=== PATIENT | female | born 1975 ===

== ENCOUNTER 2016-09-22 16:37 | Emergency (ER) | payer SELFPAY ==
[2016-09-22 16:39] VITALS: BMI 24.5
[2016-09-22 16:41] VITALS: BP 144/90; PULSE 98; RESP 18; TEMP 98; O2SAT 98
[2016-09-22] MEDS ORDERED: Amoxicillin-Clav 875-125 mg Tab PO STA (17:09)
[2016-09-22] MEDS ORDERED: Amoxicillin-Clav 875-125 mg Tab PO ONE (17:12)
--- NOTE | 2016-09-22 17:14 | C.PDOC ---
History Of Present Illness 41 y/o female c/o right ear pain for last 3 weeks. pt sts she was seen in ED here at [facility] when pain started and given rx for augmentin, of which she took only 5/10 days worth, due to gi upset, and cortisporin otic soln. per chart from 08/27, Dr Ashraf prescribed augmentin and cipro otic, but pt sts she got the cortisporin from here. pt has not followed up with med clinic or ENT since seen in ED 08/27. denies fever and chills. not taking anything for pain, using ear drops only. Time Seen by Provider: 09/22/16 16:43 Chief Complaint (Nursing): ENT Problem Past Medical History Reviewed: Historical Data, Nursing Documentation, Vital Signs Vital Signs: Last Vital Signs Temp 98 F 09/22/16 16:40 Pulse 98 H 09/22/16 16:40 Resp 18 09/22/16 16:40 BP 144/90 09/22/16 16:40 Pulse Ox 98 09/22/16 17:13 - Medical History PMH: Gastritis Denies: Diabetes Surgical History: No Surg Hx Family History: States: Unknown Family Hx - Social History Hx Tobacco Use: No Hx Alcohol Use: Yes Hx Substance Use: No - Immunization History Hx Tetanus Toxoid Vaccination: Yes Hx Influenza Vaccination: No Hx Pneumococcal Vaccination: No Physical Exam - Physical Exam Appears: Non-toxic, No Acute Distress Skin: Normal Color, Warm, Dry Head: Atraumatic, Normacephalic Eye(s): bilateral: Normal Inspection Ear(s): Left: Normal, Right: TM Erythema (TM perforated in 2 locations with mild surrounding erythema. ) Nose: Normal Oral Mucosa: Moist Neck: Normal ROM ED Course And Treatment O2 Sat by Pulse Oximetry: 98 Medical Decision Making Medical Decision Making: -perforated TM_ continue po antibiotics., stop cortisporin otic, and f/u med clinci and ent. Disposition Counseled Patient/Family Regarding: Diagnosis, Need For Followup, Rx Given - Disposition Disposition: HOME/ ROUTINE Disposition Time: 17:31 Condition: STABLE Additional Instructions: Please call medical clinic and Dr Sauer (EAR/NOSE/THROAT doctor) tomorrow for the closest follow up appointments. You must take the full week of antibiotics - take with food to decrease stomach upset. Take Motrin for pain. Prescriptions: Amoxicillin/Clavulanate [Augmentin 875 MG-125 MG] 1 tab PO BID #14 tab Ibuprofen [Motrin] 600 mg PO TID #30 tab - Clinical Impression Clinical Impression: Perforated ear drum
== END 2016-09-22 17:42 | disposition home or self-care (01) ==
LOC: C.ER 16:37
DX: H72.91 Unspecified perforation of tympanic membrane, right ear (principal)

== ENCOUNTER 2016-10-27 12:57 | Emergency (ER) | payer OTHER ==
[2016-10-27 13:07] VITALS: PULSE 86; RESP 16; O2SAT 98
--- NOTE | 2016-10-27 14:14 | C.PDOC ---
History Of Present Illness 41 year old patient presents to the ED complaining of right ear pain and discharge since yesterday. Patient denies any fever. Time Seen by Provider: 10/27/16 13:38 Chief Complaint (Nursing): ENT Problem History Per: Patient History/Exam Limitations: Language Barrier Onset/Duration Of Symptoms: Days (1) Current Symptoms Are (Timing): Still Present Quality (Ear): Pain W/Touch, Discharge Symptoms Have Been: Continuous Severity: Mild Pain Scale Rating Of: 3 Past Medical History Reviewed: Historical Data, Nursing Documentation, Vital Signs Vital Signs: Last Vital Signs Temp 97.8 F 10/27/16 14:41 Pulse 86 10/27/16 14:41 Resp 16 10/27/16 14:41 BP 112/78 10/27/16 14:41 Pulse Ox 98 10/27/16 15:11 - Medical History PMH: Gastritis Family History: States: Unknown Family Hx - Social History Hx Tobacco Use: No Hx Alcohol Use: Yes Hx Substance Use: No - Immunization History Hx Tetanus Toxoid Vaccination: Yes Hx Influenza Vaccination: No Hx Pneumococcal Vaccination: No Review Of Systems Except As Marked, All Systems Reviewed And Found Negative. Constitutional: Negative for: Fever ENT: Positive for: Ear Pain (right), Ear Discharge Physical Exam - Physical Exam Appears: Non-toxic, No Acute Distress Skin: Warm, Dry Head: Atraumatic, Normacephalic Eye(s): bilateral: Normal Inspection, PERRL, EOMI Ear(s): Left: Normal, Right: Other ((+)exudates (+)canal swelling (-)mastoid tenderness (+)tragus tenderness (+)TM not visualized) Nose: Normal Oral Mucosa: Moist Throat: Normal, No Erythema, No Exudate, No Drooling Neck: Normal ROM, Supple Lymphatic: Normal Exam Chest: Symmetrical Cardiovascular: Rhythm Regular Respiratory: Normal Breath Sounds, No Accessory Muscle Use Back: Normal Inspection Extremity: Normal ROM Neurological/Psych: Oriented x3, Normal Speech, Normal Cognition Gait: Steady ED Course And Treatment O2 Sat by Pulse Oximetry: 98 (RA) Pulse Ox Interpretation: Normal Progress Note: Plan: -Motrin. -Reassess and disposition. On reassessment, patient is resting comfortably, and is in no acute distress. Patient was instructed to follow up with ENT for further evaluation. She notes she has an appointment in the beginning of November with an ENT. Return if symptoms worsen. Disposition - Disposition Referrals: Wilfrido Sauer MD [Staff Provider] - Disposition: HOME/ ROUTINE Disposition Time: 14:10 Condition: STABLE Additional Instructions: Vaya a marti mdico o la clnica en 2-5 mcgill sin falta, para mas evaluacin. Cricket los medicamentos doc indicado. Volver a la nimco de emergencia en cualquier momento si los sntomas persisten o empeoran. 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 - Scribe Statement The provider has reviewed the documentation as recorded by the Scribe Erika Reynolds All medical record entries made by the Scribe were at my direction and personally dictated by me. I have reviewed the chart and agree that the record accurately reflects my personal performance of the history, physical exam, medical decision making, and the department course for this patient. I have also personally directed, reviewed, and agree with the discharge instructions and disposition.
[2016-10-27 14:42] VITALS: BP 112/78; TEMP 97.8
== END 2016-10-27 14:42 | disposition home or self-care (01) ==
LOC: C.ER 12:57
DX: H60.91 Unspecified otitis externa, right ear (principal)

== ENCOUNTER 2017-03-18 17:36 | Emergency (ER) | payer OTHER, SELFPAY ==
[2017-03-18] MEDS ORDERED: Tobramycin/Dexamethasone (Tobradex) Opth Sol (2.5 ml) OD STA (19:03)
[2017-03-18 20:01] VITALS: BP 119/81; PULSE 73; RESP 20; TEMP 98.1; O2SAT 98
--- NOTE | 2017-03-18 20:16 | C.PDOC ---
History Of Present Illness 41 y/o female presents to the ED for evaluation of right-sided ear pain that is associated with pink discharge. Patient presented to the ED on 07/2016, 08/2016 , and 09/2016 with similar complaints and was told she has a perforated TM. After her third visit, patient was advised to follow up with Dr. Sauer, who then advised patient to follow up with [facility] for a surgery. Patient was scheduled for surgery on 03/10, but went to [facility] and did not return until 03/15 and missed the procedure. Patient now presents for further evaluation because her ear pain has returned. She denies fever, chills, headache, vision change, neck pain, nausea, vomiting. Time Seen by Provider: 03/18/17 18:27 Chief Complaint (Nursing): ENT Problem History Per: Patient History/Exam Limitations: None Onset/Duration Of Symptoms: Days Current Symptoms Are (Timing): Still Present Quality (Ear): Pain W/Touch Past Medical History Reviewed: Historical Data, Nursing Documentation, Vital Signs Vital Signs: Last Vital Signs Temp 98.1 F 03/18/17 20:00 Pulse 73 03/18/17 20:00 Resp 20 03/18/17 20:00 BP 119/81 03/18/17 20:00 Pulse Ox 98 03/18/17 22:37 - Medical History PMH: No Chronic Diseases, Gastritis Surgical History: No Surg Hx Family History: States: Unknown Family Hx - Social History Hx Tobacco Use: No Hx Alcohol Use: Yes Hx Substance Use: No - Immunization History Hx Tetanus Toxoid Vaccination: No Hx Influenza Vaccination: No Hx Pneumococcal Vaccination: No Review Of Systems Constitutional: Negative for: Fever, Chills Eyes: Negative for: Vision Change ENT: Positive for: Ear Pain (right), Ear Discharge (right) Gastrointestinal: Negative for: Nausea, Vomiting Musculoskeletal: Negative for: Neck Pain Neurological: Negative for: Headache Physical Exam - Physical Exam Appears: Non-toxic, No Acute Distress Skin: Normal Color, Warm, Dry, No Ecchymosis, No Other (erythema ) Head: Atraumatic, Normacephalic, No Tenderness (mastoid ), No Swelling ( periauricular) Eye(s): bilateral: Normal Inspection Ear(s): Left: Normal, Right: Other (Unable to visualize TM. Yellow exudates with slight black inclusion. Swollen external canal.) Nose: Normal Oral Mucosa: Moist Neck: Normal ROM, Supple Extremity: Normal ROM Neurological/Psych: Normal Speech, Normal Cognition Gait: Steady ED Course And Treatment O2 Sat by Pulse Oximetry: 98 (on RA) Pulse Ox Interpretation: Normal Progress Note: Patient received Clindamycin PO and Tobradex OD. On reassessment , patient is resting comfortably, showing no signs of distress and is stable for discharge. Patient is advised to follow up with [facility] to reschedule her surgery within a timely manner. Disposition - Disposition Disposition: HOME/ ROUTINE Disposition Time: 20:14 Condition: STABLE Additional Instructions: Follow up with ENT specialist at [facility] as previously instructed. Return to Ed if feel worse. 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 - Scribe Statement The provider has reviewed the documentation as recorded by the Scribe (Maya Reynolds) All medical record entries made by the Scribe were at my direction and personally dictated by me. I have reviewed the chart and agree that the record accurately reflects my personal performance of the history, physical exam, medical decision making, and the department course for this patient. I have also personally directed, reviewed, and agree with the discharge instructions and disposition.
== END 2017-03-18 20:32 | disposition home or self-care (01) ==
LOC: C.ER 17:36
DX: H66.91 Otitis media, unspecified, right ear (principal)

== ENCOUNTER 2017-04-18 15:08 | Emergency (ER) | payer OTHER ==
[2017-04-18 15:44] VITALS: BMI 25.1
[2017-04-18 15:47] VITALS: BP 135/88; PULSE 86; RESP 18; TEMP 98.3; O2SAT 99
--- NOTE | 2017-04-18 16:11 | C.PDOC ---
History Of Present Illness 41 year old female presents to the ED for evaluation of right periorbital itching and swelling, nasal congestion, and a "tickle" in her throat. She reports symptoms began after taking 2 different pills of what she thinks were antibiotics. Patient states that she took the pills because she has rash on her groin and thought she needed antibiotics. However, she had multiple medications in same bottle and she is not sure what the medications she took were. She notes that she had gotten the medications from [facility] in the past. She denies shortness of breath, sensation of throat closing up, rash, fever. Time Seen by Provider: 04/18/17 15:48 Chief Complaint (Nursing): ENT Problem History Per: Patient History/Exam Limitations: no limitations Onset/Duration Of Symptoms: Days Current Symptoms Are (Timing): Still Present Home/EMS Treatment: Other (Unknown pills taken (presumed to be antibiotics)) Severity: Mild Past Medical History Reviewed: Historical Data, Nursing Documentation, Vital Signs Vital Signs: Last Vital Signs Temp 98.3 F 04/18/17 15:44 Pulse 86 04/18/17 15:44 Resp 18 04/18/17 15:44 BP 135/88 04/18/17 15:44 Pulse Ox 99 04/18/17 17:29 - Medical History PMH: Gastritis Family History: States: No Known Family Hx - Social History Hx Tobacco Use: No Hx Alcohol Use: Yes Hx Substance Use: No - Immunization History Hx Tetanus Toxoid Vaccination: No Hx Influenza Vaccination: No Hx Pneumococcal Vaccination: No Review Of Systems Except As Marked, All Systems Reviewed And Found Negative. Eyes: Positive for: Other (Periorbital swelling and itching) ENT: Positive for: Nose Congestion Cardiovascular: Negative for: Chest Pain, Palpitations Respiratory: Negative for: Cough, Shortness of Breath, Other (sensation of throat closing up) Skin: Positive for: Rash Physical Exam - Physical Exam Appears: Well, Non-toxic, No Acute Distress, Other (speaking in full sentences) Skin: Normal Color, Warm, Dry, Rash (inguinal folds with erythematous dry appearing rash consistent with fungal rash, No facial rash) Eye(s): bilateral: PERRL, EOMI, Other (Mild periorbital swelling right greater than left, No discharge ) Ear(s): Bilateral: Normal Oral Mucosa: Moist Tongue: Normal Appearing Lips: Normal Appearing Throat: No Erythema, No Exudate, No Drooling, Other (Uvual normal in appearance and midline ) Lymphatic: No Adenopathy Cardiovascular: Rhythm Regular (Rate Regular ) Respiratory: Normal Breath Sounds, No Rales, No Rhonchi, No Stridor, No Wheezing Neurological/Psych: Oriented x3 ED Course And Treatment O2 Sat by Pulse Oximetry: 99 (RA) Pulse Ox Interpretation: Normal Progress Note: Patient given PO Prednisone and Benadryl for allergic reaction. Rx for same given, + Rx for antifungal cream. Patient instructed not to take unknown medications, or put multiple meds in same bottle. She was instructed to follow up with PMD/clinic in 1-2 days, and understands she should return to ED if symptoms worsen. Reevaluation Time: 16:20 Reassessment Condition: Improved Disposition Counseled Patient/Family Regarding: Diagnosis, Need For Followup, Rx Given - Disposition Referrals: [facility] [Outside] Disposition: HOME/ ROUTINE Disposition Time: 16:20 Condition: STABLE Additional Instructions: SEGUIMIENTO CON BORDEN MDICO / CLNICA EN 1-2 MEDRANO USE MEDICAMENTOS SEGN LO INDICADO REGRESAR A LA MARIAN DE EMERGENCIA SI LOS SNTOMAS EMPEORARAN Prescriptions: Clotrimazole 1% Cream [Lotrimin 1%] 30 gm EXT BID #1 tube DiphenhydrAMINE [Benadryl] 25 mg PO Q6 PRN #15 cap PRN Reason: itching/pruritis predniSONE [predniSONE Tab] 40 mg PO DAILY #6 tab Instructions: Jock Itch (ED), General Allergic Reaction (ED) Forms: [employer] (Latvian) Print Language: CYMRAES - Clinical Impression Clinical Impression: Allergic reaction caused by a drug, Tinea cruris - Scribe Statement The provider has reviewed the documentation as recorded by the Siminibyassine Horne Provider Attestation: All medical record entries made by the Siminibyassine were at my direction and personally dictated by me. I have reviewed the chart and agree that the record accurately reflects my personal performance of the history, physical exam, medical decision making, and the department course for this patient. I have also personally directed, reviewed, and agree with the discharge instructions and disposition.
== END 2017-04-18 16:22 | disposition home or self-care (01) ==
LOC: C.ER 15:08
DX: L27.0 Generalized skin eruption due to drugs and medicaments taken internally (principal); T50.995A Adverse effect of other drugs, medicaments and biological substances, initial encounter; B35.6 Tinea cruris

== ENCOUNTER 2017-05-25 09:14 | Emergency (ER) | payer OTHER ==
[2017-05-25 09:15] VITALS: BMI 25.1
[2017-05-25 09:27] VITALS: TEMP 97.6
--- NOTE | 2017-05-25 09:27 | C.PDOC ---
History Of Present Illness 42F c/o itchy rash in her armpits and groin. she says she was seen here last month and given medication and her rash resolved completely but then came back again. she denies any fever, chills, n/v, or any other sx. Time Seen by Provider: 05/25/17 09:26 Chief Complaint (Nursing): Abnormal Skin Integrity Past Medical History Vital Signs: Last Vital Signs Temp 97.6 F 05/25/17 09:21 Pulse 96 H 05/25/17 09:21 Resp 16 05/25/17 09:21 BP 127/87 05/25/17 09:21 Pulse Ox 96 05/25/17 09:52 - Medical History PMH: Gastritis Denies: Diabetes Family History: States: Other Other Family History: nc - Social History Hx Tobacco Use: No Hx Alcohol Use: Yes Hx Substance Use: No - Immunization History Hx Tetanus Toxoid Vaccination: No Hx Influenza Vaccination: No Hx Pneumococcal Vaccination: No Review Of Systems Constitutional: Negative for: Fever, Chills, Malaise Cardiovascular: Negative for: Chest Pain Respiratory: Negative for: Cough, Shortness of Breath Gastrointestinal: Negative for: Nausea, Vomiting, Abdominal Pain Neurological: Negative for: Weakness, Numbness, Headache Physical Exam - Physical Exam Appears: Well, Non-toxic, No Acute Distress Skin: Warm, Dry, Rash (scattered blanchable erythematous rash in axillae) Cardiovascular: Rhythm Regular Respiratory: No Accessory Muscle Use Neurological/Psych: Oriented x3 ED Course And Treatment O2 Sat by Pulse Oximetry: 96 Medical Decision Making Medical Decision Making: susp tinea disc w pt plan for f/u in clinic for referral to dermatology Disposition - Disposition Referrals: [facility] [Outside] Disposition: HOME/ ROUTINE Disposition Time: 09:52 Condition: GOOD Additional Instructions: Please follow up with a primary doctor. The number for the clinic is provided for you. The cream is to treat fungal infection of the skin and the pills are steroids to decrease the itching. Return to the ER for any worsening symptoms or for any other concerns. Prescriptions: Clotrimazole 1% Cream [Lotrimin 1%] 30 applic TOP BID #1 tube Prednisone [Deltasone] 20 mg PO DAILY #3 tablet Instructions: Skin Yeast Infection (ED) Forms: [employer] (Fijian), Gen Discharge Inst Uzbek Print Language: NEPALI - Clinical Impression Clinical Impression: Rash
[2017-05-25 10:01] VITALS: BP 119/69; PULSE 71; RESP 18; O2SAT 98
== END 2017-05-25 10:01 | disposition home or self-care (01) ==
LOC: C.ER 09:14
DX: R21 Rash and other nonspecific skin eruption (principal)

== ENCOUNTER 2017-07-06 17:23 | Emergency (ER) | payer OTHER ==
[2017-07-06 17:33] VITALS: BMI 22.3
--- NOTE | 2017-07-06 18:59 | C.PDOC ---
History Of Present Illness 42 year old female presents to the emergency department accompanied by son with a complaint of an abdominal pain and 3 episodes of diarrhea since yesterday, 11/2017, after eating at a restaurant. Denies vomiting or fever. Time Seen by Provider: 07/06/17 18:04 Chief Complaint (Nursing): Abdominal Pain History Per: Patient History/Exam Limitations: no limitations Onset/Duration Of Symptoms: Days Past Medical History Reviewed: Historical Data, Nursing Documentation, Vital Signs Vital Signs: Last Vital Signs Temp 97.5 F L 07/06/17 20:21 Pulse 73 07/06/17 20:21 Resp 16 07/06/17 20:21 BP 114/72 07/06/17 20:21 Pulse Ox 99 07/06/17 21:17 - Medical History PMH: Gastritis Denies: Diabetes Surgical History: No Surg Hx Family History: States: Unknown Family Hx - Social History Hx Tobacco Use: No Hx Alcohol Use: Yes Hx Substance Use: No - Immunization History Hx Tetanus Toxoid Vaccination: No Hx Influenza Vaccination: No Hx Pneumococcal Vaccination: No Review Of Systems Except As Marked, All Systems Reviewed And Found Negative. (As per HPI, otherwise negative) Constitutional: Negative for: Fever Gastrointestinal: Positive for: Abdominal Pain, Diarrhea (3 episodes ). Negative for: Vomiting Physical Exam - Physical Exam Appears: Well, Non-toxic, Toxic Skin: Normal Color, Warm, Dry Head: Atraumatic, Normacephalic Gastrointestinal/Abdominal: No Normal Exam, Soft, Tenderness (Mild epigastric pain with mild RUQ) Extremity: Normal ROM, No Pedal Edema ED Course And Treatment - Laboratory Results Result Diagrams: 07/06/17 19:35 07/06/17 19:35 O2 Sat by Pulse Oximetry: 99 (RA) Pulse Ox Interpretation: Normal Medical Decision Making Medical Decision Making: Time: 1915 CMP Lipase CBC w/ diff Pepcid 40 mg IVP Sodium Chloride 1L IV Zofran 4 gm IVP HCG, Qualitative Urinalysis Time: 2114 --Patient will be discharged home with an Rx for Loperamide 2 mg. Disposition - Disposition Disposition: HOME/ ROUTINE Disposition Time: 21:15 Condition: STABLE Additional Instructions: Follow up with PMD/clinic within 1-2 days. Return to ED if feel worse. Prescriptions: Loperamide [Loperamide HCl] 2 mg PO QID #20 cap Instructions: Enteritis (ED) Forms: [employer] [employer] (Irish) Print Language: HEBREW - Clinical Impression Clinical Impression: Enteritis - Scribe Statement Scribe~Attestation: Documented by Suzanne Pearl, acting as a scribe for Lorin Watson PA-C. ~ Provider Scribe~Attestation: All medical record entries made by the Scribe were at my direction and personally dictated by me. I have reviewed the chart and agree that the record accurately reflects my personal performance of the history, physical exam, medical decision making, and the department course for this patient. I have also personally directed, reviewed, and agree with the discharge instructions and disposition.
[2017-07-06] MEDS ORDERED: Sodium Chloride 0.9% 1,000 ML IV STA (19:16)
[2017-07-06] MEDS ORDERED: Belladonna-Phenobarbital PO STA (19:16)
[2017-07-06 19:38] LABS: BASO % 0.4 % (0.0-2.0); EOS # 0.1 K/uL (0.0-0.7); EOS % 1.2 % (0.0-4.0); HEMOGLOBIN 12.8 g/dL (11.0-16.0); LYMPH # 3.1 K/uL (1.0-4.3); MEAN CELL VOLUME 86.7 fL (81.0-99.0); MEAN CORPUSCULAR HEMOGLOBIN 28.7 pg (27.0-31.0); MEAN PLATELET VOLUME 8.1 fL (7.2-11.7); MONO # 0.5 K/uL (0.0-0.8); MONO % 6.1 % (0.0-10.0); NEUT # 4.7 K/uL (1.8-7.0); NEUT % 55.3 % (50.0-75.0); RBC 4.47 Mil/uL (3.80-5.20); RED CELL DISTRIBUTION WIDTH 12.8 % (11.5-14.5); WHITE BLOOD COUNT 8.5 K/uL (4.8-10.8)
[2017-07-06] MEDS ORDERED: Sodium Chloride 0.9% 1,000 ML ONE (19:46)
[2017-07-06] MEDS ORDERED: Belladonna-Phenobarbital ONE (19:46)
[2017-07-06 19:49] LABS: SQUAMOUS EPITHIAL < 1 /hpf (0-5); URINE BILIRUBIN NEGATIVE (NEGATIVE); URINE BLOOD 2+ (NEGATIVE); URINE CLARITY Clear (Clear); URINE COLOR Yellow (YELLOW); URINE GLUCOSE (UA) NORMAL (Normal); URINE LEUKOCYTE ESTERASE NEG Leu/uL (Negative); URINE NITRATE NEGATIVE (NEGATIVE); URINE PROTEIN NEGATIVE (NEGATIVE); URINE UROBILINOGEN NORMAL mg/dL (0.2-1.0)
[2017-07-06 19:50] LABS: HCG,QUALITATIVE URINE NEGATIVE (NEGATIVE)
[2017-07-06 19:52] LABS: ALB/GLOB RATIO 1.3 (1.0-2.1); ALBUMIN 4.2 g/dL (3.5-5.0); ALT/SGPT 30 U/L (9-52); AST/SGOT 26 U/L (14-36); BLOOD UREA NITROGEN 13 mg/dL (7-17); CALCIUM 8.4 mg/dl (8.6-10.4); GFR AFRICAN-AMERICAN > 60; GFR NON-AFRICAN AMERICAN > 60; LIPASE 114 U/L (23-300)
[2017-07-06 20:51] VITALS: O2SAT 99
[2017-07-06 22:15] VITALS: BP 122/68; PULSE 80; RESP 18; TEMP 98
== END 2017-07-06 21:17 | disposition home or self-care (01) ==
LOC: C.ER 17:23
DX: K52.9 Noninfective gastroenteritis and colitis, unspecified (principal)
CPT/HCPCS: 80053; 81001; 83690; 84703; 85025; 96361; 96374; 96375; 99284; J2405; J7040

== ENCOUNTER 2017-10-01 10:20 | Emergency (ER) | payer OTHER ==
[2017-10-01 10:20] VITALS: BMI 22.3
--- NOTE | 2017-10-01 11:10 | C.PDOC ---
History Of Present Illness 42 year old female presents to the ED c/o rash to her left arm, shoulder for the past 15 days. Patient reports she went to see her boyfriends PMD who prescribed her a cream for her rash, patient reports no relief to her symptoms. Patient reports she has been spending more time at her boyfriend's place who has pets which she is not exposed at home. Patient denies new detergents, creams , foods, fever, chills, nausea, vomit. Time Seen by Provider: 10/01/17 10:48 Chief Complaint (Nursing): Abnormal Skin Integrity History Per: Patient History/Exam Limitations: no limitations Onset/Duration Of Symptoms: Days Current Symptoms Are (Timing): Still Present Location Of Injury: Left: Arm, Shoulder Quality Of Symptoms: Itching Recent travel outside of the [place]: No Additional History Per: Patient Past Medical History Reviewed: Historical Data, Nursing Documentation, Vital Signs Vital Signs: Last Vital Signs Temp 98 F 10/01/17 10:33 Pulse 83 10/01/17 10:33 Resp 20 10/01/17 10:33 BP 128/76 10/01/17 10:33 Pulse Ox 99 10/01/17 10:33 - Medical History PMH: Gastritis Denies: Diabetes Surgical History: No Surg Hx Family History: States: Unknown Family Hx - Social History Hx Tobacco Use: No Hx Alcohol Use: Yes Hx Substance Use: No - Immunization History Hx Tetanus Toxoid Vaccination: No Hx Influenza Vaccination: No Hx Pneumococcal Vaccination: No Review Of Systems Constitutional: Negative for: Fever, Chills ENT: Negative for: Mouth Swelling, Throat Swelling Cardiovascular: Negative for: Chest Pain Respiratory: Negative for: Shortness of Breath Gastrointestinal: Negative for: Abdominal Pain Skin: Positive for: Rash Physical Exam - Physical Exam Appears: Non-toxic, No Acute Distress Skin: Normal Color, Warm, Dry, Rash (erythematous macular to her left arm, shoulder and upper back. No cellulitic component ) Head: Atraumatic, Normacephalic Eye(s): bilateral: Normal Inspection Nose: No Discharge Oral Mucosa: Moist Tongue: No Swelling Lips: No Swelling Throat: Normal, No Erythema, No Exudate Neck: Normal ROM, Supple Respiratory: Normal Breath Sounds, No Rales, No Rhonchi, No Wheezing Extremity: Normal ROM Neurological/Psych: Oriented x3 Gait: Steady ED Course And Treatment O2 Sat by Pulse Oximetry: 99 (On RA) Pulse Ox Interpretation: Normal Medical Decision Making Medical Decision Making: Assessment: Macular rash Plan: * Benadryl 25 mg PO * Prednisone 60 mg PO Disposition - Disposition Forms: [employer] (Saudi Arabian) - Scribe Statement The provider has reviewed the documentation as recorded by the Scribe James Uriarte All medical record entries made by the Scribe were at my direction and personally dictated by me. I have reviewed the chart and agree that the record accurately reflects my personal performance of the history, physical exam, medical decision making, and the department course for this patient. I have also personally directed, reviewed, and agree with the discharge instructions and disposition.
--- NOTE | 2017-10-01 11:10 | C.PDOC ---
History Of Present Illness 42 year old female presents to the ED c/o rash to her left arm, shoulder for the past 15 days. Patient reports she went to see her boyfriends PMD who prescribed her a cream for her rash, patient reports no relief to her symptoms. Patient reports she has been spending more time at her boyfriend's place who has pets which she is not exposed at home. Patient denies new detergents, creams , foods, fever, chills, nausea, vomit. Time Seen by Provider: 10/01/17 10:48 Chief Complaint (Nursing): Abnormal Skin Integrity History Per: Patient History/Exam Limitations: no limitations Onset/Duration Of Symptoms: Days Current Symptoms Are (Timing): Still Present Location Of Injury: Left: Arm, Back, Shoulder Quality Of Symptoms: Itching Recent travel outside of the [place]: No Additional History Per: Patient Past Medical History Reviewed: Historical Data, Nursing Documentation, Vital Signs Vital Signs: Last Vital Signs Temp 98.6 F 10/01/17 11:30 Pulse 79 10/01/17 11:30 Resp 18 10/01/17 11:30 BP 125/84 10/01/17 11:30 Pulse Ox 98 10/01/17 11:30 - Medical History PMH: Gastritis Denies: Diabetes Surgical History: No Surg Hx Family History: States: Unknown Family Hx - Social History Hx Tobacco Use: No Hx Alcohol Use: Yes Hx Substance Use: No - Immunization History Hx Tetanus Toxoid Vaccination: No Hx Influenza Vaccination: No Hx Pneumococcal Vaccination: No Review Of Systems Constitutional: Negative for: Fever, Chills ENT: Negative for: Mouth Swelling, Throat Swelling Cardiovascular: Negative for: Palpitations Respiratory: Negative for: Shortness of Breath Gastrointestinal: Negative for: Abdominal Pain Skin: Positive for: Rash Physical Exam - Physical Exam Appears: Non-toxic, No Acute Distress Skin: Normal Color, Warm, Dry, Rash (erythematous macular to her left arm, shoulder and upper back. No cellulitic component) Head: Atraumatic, Normacephalic Eye(s): bilateral: Normal Inspection Nose: No Discharge Oral Mucosa: Moist Tongue: No Swelling Lips: No Swelling Throat: Normal, No Erythema, No Exudate Neck: Normal ROM, Supple Respiratory: Normal Breath Sounds, No Rales, No Rhonchi, No Wheezing Extremity: Normal ROM, No Tenderness, No Swelling Neurological/Psych: Oriented x3 Gait: Steady ED Course And Treatment O2 Sat by Pulse Oximetry: 99 (On RA) Pulse Ox Interpretation: Normal Medical Decision Making Medical Decision Making: Assessment: Macular rash Plan: Benadryl 25 mg PO Prednisone 60 mg PO Disposition Counseled Patient/Family Regarding: Studies Performed, Diagnosis, Need For Followup, Rx Given - Disposition Referrals: [facility] [Outside] Disposition: HOME/ ROUTINE Disposition Time: 11:03 Condition: STABLE Additional Instructions: follow up with your doctor or medical clinic in 2 days call to make an appointment take medications as prescribed return to ER if symptoms worsens or progress Prescriptions: DiphenhydrAMINE [Benadryl] 25 mg PO QID PRN #20 cap PRN Reason: Itching / Pruritus Hydrocortisone 1% Cream [Cortizone 1% Cream] 1 applic TP BID PRN #30 tube PRN Reason: Rash Permethrin 5% [Permethrin] 1 applic TP DAILY PRN #30 tube PRN Reason: Rash predniSONE [predniSONE Tab] 50 mg PO DAILY #4 tab Instructions: Skin Rash (DC), Scabies (DC) Forms: Gen Discharge Inst Occitan, [employer] (Occitan) Print Language: SWEDISH - Clinical Impression Clinical Impression: Rash, Scabies - Scribe Statement The provider has reviewed the documentation as recorded by the Scribyassine Uriarte All medical record entries made by the Scribe were at my direction and personally dictated by me. I have reviewed the chart and agree that the record accurately reflects my personal performance of the history, physical exam, medical decision making, and the department course for this patient. I have also personally directed, reviewed, and agree with the discharge instructions and disposition.
[2017-10-01 11:33] VITALS: BP 125/84; PULSE 79; RESP 18; TEMP 98.6
[2017-10-03 11:57] VITALS: O2SAT 99
== END 2017-10-01 11:34 | disposition home or self-care (01) ==
LOC: C.ER 10:20
DX: B86 Scabies (principal)

== ENCOUNTER 2017-12-14 13:36 | Emergency (ER) | payer OTHER ==
[2017-12-14 13:36] VITALS: BMI 22.3
[2017-12-14 13:51] VITALS: BP 145/88; PULSE 85; RESP 18; TEMP 98.4; O2SAT 98
[2017-12-14 14:23] LABS: HCG,QUALITATIVE URINE NEGATIVE (NEGATIVE)
[2017-12-14 14:29] LABS: SQUAMOUS EPITHIAL 10 /hpf (0-5); URINE BACTERIA OCC (<OCC); URINE BILIRUBIN NEGATIVE (NEGATIVE); URINE BLOOD NEGATIVE (NEGATIVE); URINE CLARITY Clear (Clear); URINE COLOR Amber (YELLOW); URINE GLUCOSE (UA) NORMAL (Normal); URINE LEUKOCYTE ESTERASE 2+ Leu/uL (Negative); URINE PROTEIN NEGATIVE (NEGATIVE)
--- NOTE | 2017-12-14 14:39 | C.PDOC ---
History Of Present Illness 42 yo female c/o dysuria and urinary frequency for 2 weeks. Pt took pyridium without relief. Denies back pain, vomiting, fever, hematuria, vaginal bleeding or vaginal discharge. ALso c/o of nasal congestion for 4 days. Denies sob, chest pain, cough, fever, difficultly breathing or swallowing. Has not tried any medication for the symptoms. Time Seen by Provider: 12/14/17 13:52 Chief Complaint (Nursing): Female Genitourinary History Per: Patient History/Exam Limitations: no limitations Onset/Duration Of Symptoms: Days Current Symptoms Are (Timing): Still Present Quality Of Discomfort: Burning Past Medical History Vital Signs: Last Vital Signs Temp 98.4 F 12/14/17 13:48 Pulse 85 12/14/17 13:48 Resp 18 12/14/17 13:48 BP 145/88 12/14/17 13:48 Pulse Ox 98 12/14/17 14:47 - Medical History PMH: Gastritis Denies: Diabetes Family History: States: Unknown Family Hx - Social History Hx Tobacco Use: No Hx Alcohol Use: No Hx Substance Use: No - Immunization History Hx Tetanus Toxoid Vaccination: No Hx Influenza Vaccination: No Hx Pneumococcal Vaccination: No Review Of Systems Except As Marked, All Systems Reviewed And Found Negative. ENT: Positive for: Nose Congestion Genitourinary: Positive for: Dysuria, Frequency Physical Exam - Physical Exam Appears: Well, Non-toxic, No Acute Distress Skin: Normal Color, Warm, Dry Head: Atraumatic, Normacephalic Eye(s): bilateral: Normal Inspection, PERRL, EOMI Ear(s): Bilateral: Normal Nose: Other ((+) clear nasal congestion) Oral Mucosa: Moist Tongue: No Swelling Lips: No Swelling Throat: Normal, No Erythema, No Exudate Neck: Normal, Normal ROM, Supple Chest: Symmetrical Cardiovascular: Rhythm Regular Respiratory: Normal Breath Sounds, No Accessory Muscle Use Gastrointestinal/Abdominal: Soft, Tenderness (suprapubic tenderness) Back: Normal Inspection, No CVA Tenderness, No Vertebral Tenderness Extremity: Normal ROM Neurological/Psych: Oriented x3, Normal Speech ED Course And Treatment O2 Sat by Pulse Oximetry: 98 Progress Note: UA (+) for UTI. MAcrobid ordered. Instructed to follow up with PMD in 3-5 days to ensure resolution or return to eR if symtpoms persist or worsen. CIRILO Juarez used to translate ensure understanding. Disposition - Disposition Referrals: [facility] [Outside] Disposition: HOME/ ROUTINE Disposition Time: 14:37 Condition: STABLE Additional Instructions: Vaya a marti mdico o la clnica en 1-3 mcgill sin falta, para mas evaluacin. [place] los medicamentos doc indicado. Volver a la nimco de emergencia en cualquier momento si los sntomas persisten o empeoran. Prescriptions: Fluticasone Nasal [Flonase] 1 actuation NS DAILY #1 spr Nitrofurantoin Macrocrystals [Macrobid] 1 cap PO BID #14 cap Instructions: Urinary Tract Infection, Adult (DC) Forms: [facility] (American) Print Language: FIJIAN - Clinical Impression Clinical Impression: UTI (urinary tract infection)
== END 2017-12-14 14:55 | disposition home or self-care (01) ==
LOC: C.ER 13:36
DX: N39.0 Urinary tract infection, site not specified (principal)

== ENCOUNTER 2018-03-16 14:44 | Emergency (ER) | payer OTHER ==
[2018-03-16 14:44] VITALS: BMI 22.3
[2018-03-16 15:20] VITALS: BP 124/75; PULSE 85; RESP 18; TEMP 98.7; O2SAT 98
--- NOTE | 2018-03-16 15:51 | C.PDOC ---
History Of Present Illness 42 year old female presents to ED for evaluation of right ear pain for the last week. Denies fever, vomiting, nausea, and other associated symptoms. Time Seen by Provider: 03/16/18 15:30 Chief Complaint (Nursing): ENT Problem History Per: Patient History/Exam Limitations: None Onset/Duration Of Symptoms: Days Current Symptoms Are (Timing): Still Present Past Medical History Reviewed: Historical Data, Nursing Documentation, Vital Signs Vital Signs: Last Vital Signs Temp 98.7 F 03/16/18 15:17 Pulse 85 03/16/18 15:17 Resp 18 03/16/18 15:17 BP 124/75 03/16/18 15:17 Pulse Ox 98 03/16/18 16:29 - Medical History PMH: Gastritis Denies: Diabetes Family History: States: Unknown Family Hx - Social History Hx Tobacco Use: No Hx Alcohol Use: Yes Hx Substance Use: No - Immunization History Hx Tetanus Toxoid Vaccination: No Hx Influenza Vaccination: No Hx Pneumococcal Vaccination: No Review Of Systems Constitutional: Negative for: Fever, Chills ENT: Positive for: Ear Pain (right ) Gastrointestinal: Negative for: Nausea, Vomiting Physical Exam - Physical Exam Appears: Non-toxic, No Acute Distress Skin: Normal Color, Warm, Dry Head: Atraumatic, Normacephalic Ear(s): Left: Normal, Right: Other (Perforated healing TM. No erythema, discharge ) Chest: Symmetrical Cardiovascular: Rhythm Regular Respiratory: Normal Breath Sounds, Other (NARD) ED Course And Treatment O2 Sat by Pulse Oximetry: 98 (RA) Pulse Ox Interpretation: Normal Medical Decision Making Medical Decision Making: Plan: -Ibuprofen Disposition Counseled Patient/Family Regarding: Diagnosis, Need For Followup, Rx Given - Disposition Referrals: [facility] [Outside] [facility] [Outside] Disposition: HOME/ ROUTINE Disposition Time: 16:00 Condition: GOOD Prescriptions: Ibuprofen [Motrin] 600 mg PO Q6 #30 tab Instructions: Ruptured Eardrum (DC) Forms: [facility] (Korean) Print Language: UPPER SORBIAN - Clinical Impression Clinical Impression: Ruptured tympanic membrane - Scribe Statement The provider has reviewed the documentation as recorded by the Scribe (Lyla Brown) Provider Attestation: All medical record entries made by the Scribe were at my direction and personally dictated by me. I have reviewed the chart and agree that the record accurately reflects my personal performance of the history, physical exam, medical decision making, and the department course for this patient. I have also personally directed, reviewed, and agree with the discharge instructions and disposition.
== END 2018-03-16 16:06 | disposition home or self-care (01) ==
LOC: C.ER 14:44
DX: H72.91 Unspecified perforation of tympanic membrane, right ear (principal)

== ENCOUNTER 2018-04-05 16:55 | Emergency (ER) | payer OTHER ==
[2018-04-05 17:15] VITALS: BMI 25.7
[2018-04-05 17:23] VITALS: O2SAT 99
[2018-04-05 18:44] LABS: HCG,QUALITATIVE URINE NEGATIVE (NEGATIVE)
[2018-04-05 18:49] LABS: SQUAMOUS EPITHIAL 7 /hpf (0-5); URINE BACTERIA OCC (<OCC); URINE BILIRUBIN NEGATIVE (NEGATIVE); URINE BLOOD NEGATIVE (NEGATIVE); URINE CLARITY Hazy (Clear); URINE COLOR Yellow (YELLOW); URINE GLUCOSE (UA) NORMAL (Normal); URINE LEUKOCYTE ESTERASE NEG Leu/uL (Negative); URINE PROTEIN NEGATIVE (NEGATIVE); URINE UROBILINOGEN NORMAL mg/dL (0.2-1.0)
--- NOTE | 2018-04-05 18:53 | C.PDOC ---
History Of Present Illness 42-year-old female, presents to the emergency department with complaints of pain to the right side of her face x2 weeks. Patient states that in August, she had surgery for her ear in [place]. States when she wakes up in the morning pain is mild but worsens throughout the day. Additionally, patient is complaining of dysuria x5 days. No fever. Time Seen by Provider: 04/05/18 17:34 Chief Complaint (Nursing): Medical Clearance History Per: Patient History/Exam Limitations: no limitations Past Medical History Reviewed: Historical Data, Nursing Documentation, Vital Signs Vital Signs: Last Vital Signs Temp 99.2 F 04/05/18 17:15 Pulse 92 H 04/05/18 17:15 Resp 18 04/05/18 17:15 BP 121/78 04/05/18 17:15 Pulse Ox 99 04/05/18 17:15 - Medical History PMH: Gastritis Denies: Diabetes Family History: States: No Known Family Hx - Social History Hx Tobacco Use: No Hx Alcohol Use: Yes Hx Substance Use: No - Immunization History Hx Tetanus Toxoid Vaccination: No Hx Influenza Vaccination: No Hx Pneumococcal Vaccination: No Review Of Systems Constitutional: Negative for: Fever ENT: Positive for: Ear Pain Respiratory: Negative for: Shortness of Breath Gastrointestinal: Negative for: Vomiting Genitourinary: Positive for: Dysuria Skin: Negative for: Rash Neurological: Negative for: Weakness, Numbness, Headache, Dizziness Physical Exam - Physical Exam Appears: Non-toxic, No Acute Distress Skin: Warm, Dry, No Rash Head: Tenderness (right side of face) Eye(s): right: Other (healing perforation) Nose: Normal Oral Mucosa: Moist Lips: Normal Appearing Throat: No Erythema, No Exudate, No Drooling, No Mass Neck: Normal ROM Chest: Symmetrical Cardiovascular: Rhythm Regular, No Murmur Respiratory: Normal Breath Sounds, No Accessory Muscle Use Extremity: Normal ROM, No Deformity Neurological/Psych: Oriented x3, Normal Speech ED Course And Treatment O2 Sat by Pulse Oximetry: 99 Pulse Ox Interpretation: Normal (RA) - CT Scan/US CT HEAD Other Rad Studies (CT/US): Read By Radiologist, Radiology Report Reviewed CT/US Interpretation: PRELIMINARY REPORT [facility]. [address] [place] [address]. [place] [address]. Phone: [phone]. . Report Submission Date: Apr 05, 2018 8:19:22 PM EDT. Name:ISH HARPER Exam Date:Apr 05, 2018 7:16:57 PM EDT. Modality Type:CT\SR. Description:CT - BRAIN WITH CORONAL AND SAGITTAL MPRS. Gender:F Laterality:Not applicable. :77 Referring Physician:Lorin Watson (BOWEN). EXAM: CT Head Without IV contrast. CLINICAL HISTORY: RT side facial pain. TECHNIQUE: Axial computed tomography images of the head/brain without intravenous contrast. COMPARISON: None provided. FINDINGS: BRAIN. No acute intraparenchymal hemorrhage. No mass lesion. No CT evidence for acute territorial infarct. No midline shift or extra-axial collections. VENTRICLES: No hydrocephalus. ORBITS: The orbits are unremarkable. SINUSES AND MASTOIDS: The paranasal sinuses and mastoid air cells are clear. BONES: No fracture. IMPRESSION: No acute intracranial abnormality. . Electronically signed on Apr 05, 2018 8:19:22 PM EDT by: Gerardo Shaffer M.D., Certified by [facility], Diagnostic Radiology. Progress Note: Patient has no neuro deficit. Pain could be presentation of trigeminal neuralgia. Given Rx for Neurontin and referral to neurologist. Disposition - Disposition Referrals: Prem West MD [Staff Provider] - Disposition: HOME/ ROUTINE Disposition Time: 20:24 Condition: STABLE Additional Instructions: Follow up with Neurologist within 1-2 days. Return to ED if feel worse. Prescriptions: Nitrofurantoin Macrocrystals [Macrobid] 1 cap PO BID #14 cap Gabapentin [Neurontin] 100 mg PO TID #30 capsule Phenazopyridine [Pyridium] 200 mg PO TID #15 tab Instructions: Complex Regional Pain Syndrome, Dysuria, Adult (DC) Forms: [employer] (North Korean) Print Language: COOK ISLANDER - Clinical Impression Clinical Impression: Facial pain, Dysuria - Scribe Statement The provider has reviewed the documentation as recorded by the Scribe (G[facility]) All medical record entries made by the Scribe were at my direction and personally dictated by me. I have reviewed the chart and agree that the record accurately reflects my personal performance of the history, physical exam, medical decision making, and the department course for this patient. I have also personally directed, reviewed, and agree with the discharge instructions and disposition.
[2018-04-05 20:12] VITALS: BP 124/84; PULSE 82; RESP 16; TEMP 98.8
--- NOTE | 2018-04-06 09:59 | CT ---
Date of service: 04/05/2018 PROCEDURE: CT HEAD WITHOUT CONTRAST. HISTORY: right facial pain COMPARISON: None available. TECHNIQUE: Axial computed tomography images were obtained through the head/brain without intravenous contrast. Radiation dose: Total exam DLP = 1016.30 mGy-cm. This CT exam was performed using one or more of the following dose reduction techniques: Automated exposure control, adjustment of the mA and/or kV according to patient size, and/or use of iterative reconstruction technique. FINDINGS: HEMORRHAGE: No acute parenchymal, subarachnoid or extra-axial hemorrhage. BRAIN: No mass effect or edema. No atrophy or chronic microvascular ischemic changes. VENTRICLES: Unremarkable. No hydrocephalus. CALVARIUM: Unremarkable. PARANASAL SINUSES: Unremarkable as visualized. No significant inflammatory changes. MASTOID AIR CELLS: Unremarkable as visualized. No inflammatory changes. OTHER FINDINGS: None. IMPRESSION: No acute intracranial hemorrhage. The
== END 2018-04-05 20:33 | disposition home or self-care (01) ==
LOC: C.ER 16:55
DX: R51 Headache (principal); R30.0 Dysuria

== ENCOUNTER 2018-05-25 11:50 | Emergency (ER) | payer OTHER ==
[2018-05-25 11:50] VITALS: BMI 25.7
[2018-05-25 12:17] VITALS: BP 128/83; PULSE 95; RESP 18; TEMP 97.9; O2SAT 97
--- NOTE | 2018-05-25 12:50 | C.PDOC ---
History Of Present Illness 43 year old female w/o significant PMHx presents to the ED for evaluation of nasal congestion, runny nose, dry cough for past week and bilateral earache x1 day. Patient also complains of itchy, dry, and scaling skin in the pelvic region for [id number]. The patient denies high fever, chills, headache, dizziness, neck pain, drooling, dysphagia, dyspnea, CP, SOB, wheezing, abdominal pain, vomiting, nausea, diarrhea, vaginal discharge, vaginal bleeding, and any other associated symptoms. Time Seen by Provider: 05/25/18 12:08 Chief Complaint (Nursing): Cough, Cold, Congestion History Per: Patient History/Exam Limitations: no limitations Onset/Duration Of Symptoms: Days Current Symptoms Are (Timing): Still Present Past Medical History Reviewed: Historical Data, Nursing Documentation, Vital Signs Vital Signs: Last Vital Signs Temp 97.9 F 05/25/18 12:12 Pulse 95 H 05/25/18 12:12 Resp 18 05/25/18 12:12 BP 128/83 05/25/18 12:12 Pulse Ox 97 05/25/18 12:12 - Medical History PMH: Gastritis Denies: Diabetes Family History: States: Unknown Family Hx - Social History Hx Tobacco Use: No Hx Alcohol Use: Yes Hx Substance Use: No - Immunization History Hx Tetanus Toxoid Vaccination: No Hx Influenza Vaccination: No Hx Pneumococcal Vaccination: No Review Of Systems Except As Marked, All Systems Reviewed And Found Negative. Constitutional: Negative for: Fever ENT: Positive for: Ear Pain (earache. ), Nose Discharge, Nose Congestion Respiratory: Positive for: Cough (dry) Gastrointestinal: Negative for: Nausea, Vomiting, Abdominal Pain, Diarrhea Genitourinary: Negative for: Vaginal Discharge, Vaginal Bleeding Musculoskeletal: Negative for: Back Pain Physical Exam - Physical Exam Appears: Well, Non-toxic, No Acute Distress Skin: Normal Color, Warm, Dry, No Rash Head: Normacephalic Eye(s): bilateral: PERRL Ear(s): Bilateral: Normal Nose: No Flaring, Discharge (B/L basal congestion with scant clear rhinorrhea B/L) Oral Mucosa: Moist, No Drooling Tongue: Normal Appearing Lips: Normal Appearing Throat: No Erythema, No Exudate Neck: Trachea Midline, Supple Chest: Symmetrical, No Deformity, No Tenderness Cardiovascular: Rhythm Regular, No Murmur, No JVD Respiratory: No Decreased Breath Sounds, No Rales, No Rhonchi, No Stridor, No Wheezing Gastrointestinal/Abdominal: Soft, No Tenderness, No Distention, No Guarding, No Rebound Back: No CVA Tenderness Extremity: No Pedal Edema, No Calf Tenderness, Capillary Refill (less than 2 seconds. ), No Deformity Neurological/Psych: Oriented x3, Normal Speech, Normal Motor, Normal Sensation, Normal Reflexes ED Course And Treatment O2 Sat by Pulse Oximetry: 97 (RA) Pulse Ox Interpretation: Normal Progress Note: Plan: Urinalysis. HCG Urine. On re-eval, pt is afebrile, hemodynamicaly stable. NOn-toxic. Tolerate Po well in ED. PulseOx 97% RA. ENT: no acute findings. neck: SUpple, (-) JVD, (-) carotid bruits B/L. Lungs: CTA B/L, BS equal B/L. CVS: (+)S1S2, reg, (-) murmur. Abd: benign. Back: (-) CVA tenderness. neuorlogicaly intact. UA- normal study. Pt has clinical findings c/w acute bronchitis, vulvovaginitis. Pt advised and ref. to f/u with PMD in 2-3 days for re-eval. return if any new changes. Disposition Counseled Patient/Family Regarding: Studies Performed, Diagnosis, Need For Followup, Rx Given - Disposition Referrals: [facility] [Outside] Disposition: HOME/ ROUTINE Disposition Time: 13:04 Condition: STABLE Additional Instructions: Encourage fluids take medication as prescribed Follow up with PMD in2 -3 days for re-evaluation. return to ED if any worsening or new changes. Prescriptions: Azithromycin [Zithromax] 250 mg PO DAILY #4 tab Benzonatate [Tessalon Perle] 100 mg PO TID #14 capsule Fluconazole [Diflucan] 150 mg PO DAILY #3 tab Prednisone [Deltasone] 40 mg PO DAILY #6 tablet Instructions: Acute Bronchitis, Vulvovaginal Yeast Infection Forms: [employer] (Estonian) Print Language: EGYPTIAN - Clinical Impression Clinical Impression: Bronchitis, Vulvovaginal candidiasis - PA / SHIPFITTER APPRENTICE / Resident Statement MD/DO has reviewed & agrees with the documentation as recorded. - Scribe Statement The provider has reviewed the documentation as recorded by the Scribe (Lyla Brown) All medical record entries made by the Scribe were at my direction and personally dictated by me. I have reviewed the chart and agree that the record accurately reflects my personal performance of the history, physical exam, medical decision making, and the department course for this patient. I have also personally directed, reviewed, and agree with the discharge instructions and disposition.
[2018-05-25 13:10] LABS: HCG,QUALITATIVE URINE NEGATIVE (NEGATIVE)
[2018-05-25 13:14] LABS: SQUAMOUS EPITHIAL 6 /hpf (0-5); URINE BILIRUBIN NEGATIVE (NEGATIVE); URINE BLOOD NEGATIVE (NEGATIVE); URINE CLARITY Clear (Clear); URINE COLOR Yellow (YELLOW); URINE GLUCOSE (UA) NORMAL (Normal); URINE LEUKOCYTE ESTERASE NEG Leu/uL (Negative); URINE PROTEIN NEGATIVE (NEGATIVE); URINE UROBILINOGEN NORMAL mg/dL (0.2-1.0)
== END 2018-05-25 13:49 | disposition home or self-care (01) ==
LOC: C.ER 11:50
DX: B37.3 Candidiasis of vulva and vagina (principal); J40 Bronchitis, not specified as acute or chronic

== ENCOUNTER 2018-06-13 18:26 | Emergency (ER) | payer OTHER ==
[2018-06-13 18:43] VITALS: BMI 25.2
[2018-06-13 18:44] VITALS: BP 117/76; PULSE 91; RESP 17; TEMP 98.6; O2SAT 98
--- NOTE | 2018-06-13 19:20 | C.PDOC ---
History Of Present Illness 43 year old female presents to the ED complaining of throat pain and itching. Reports it is worse in the mornings when she wakes up. States she was seen on 05/25 in the ED for runny nose, congestion, and ear pain and was diagnosed with bronchitis. Denies any difficulty swallowing, fever, chills, ear pain, nasal congestion. Reports her two children are also sick with the same symptoms. Time Seen by Provider: 06/13/18 19:03 Chief Complaint (Nursing): ENT Problem History Per: Patient History/Exam Limitations: no limitations Onset/Duration Of Symptoms: Days Current Symptoms Are (Timing): Still Present Location Of Pain: Throat Associated Symptoms: Sore Throat. denies: Fever, Chills, Cough, Nasal Congestion, Vomiting, Diarrhea Ear Symptoms: Bilateral: None Past Medical History Reviewed: Historical Data, Nursing Documentation, Vital Signs Vital Signs: Last Vital Signs Temp 98.6 F 06/13/18 18:41 Pulse 91 H 06/13/18 18:41 Resp 17 06/13/18 18:41 BP 117/76 06/13/18 18:41 Pulse Ox 98 06/13/18 18:41 - Medical History PMH: Gastritis Denies: Diabetes Other Surgeries: Hx of surgeries Family History: States: No Known Family Hx - Social History Hx Tobacco Use: No Hx Alcohol Use: Yes Hx Substance Use: No - Immunization History Hx Tetanus Toxoid Vaccination: No Hx Influenza Vaccination: No Hx Pneumococcal Vaccination: No Review Of Systems Except As Marked, All Systems Reviewed And Found Negative. Constitutional: Negative for: Fever, Chills ENT: Positive for: Throat Pain. Negative for: Ear Pain, Nose Congestion Physical Exam - Physical Exam Appears: Non-toxic, No Acute Distress Skin: Warm, Dry, No Rash Head: Normacephalic Eye(s): bilateral: Normal Inspection Nose: Normal Oral Mucosa: Moist Throat: Normal, No Erythema, No Exudate Neck: Supple Chest: Symmetrical Cardiovascular: Rhythm Regular Respiratory: No Rales, No Rhonchi, No Wheezing, Other (NARD) Neurological/Psych: Oriented x3, Normal Speech Gait: Steady ED Course And Treatment O2 Sat by Pulse Oximetry: 98 (RA) Pulse Ox Interpretation: Normal Disposition Counseled Patient/Family Regarding: Diagnosis, Need For Followup - Disposition Referrals: [facility] [Outside] [facility] [Outside] Disposition: HOME/ ROUTINE Disposition Time: 19:22 Condition: GOOD Additional Instructions: SEGUIR EN LA CLNICA AFR[place] SE WAGNER INSTRUCTADO ANTERIORMENTE SOBRE REYES VISITAS PREVIAS. Pandey nariz y garganta producen mucosidad todo el tiempo. ... Farrah cuando tiene un resfriado, congestin o alergias, la cantidad de moco puede aumentar, acumularse y espesarse. La sensacin de que micki moco se drena por la parte posterior de la garganta es goteo posnasal. A menudo causa dolor de garganta, tos y problemas para tragar. Qu lo causa? El aumento de la mucosidad que conduce al goteo posnasal puede ser causado por un resfriado, gripe, alergias, sinusitis o cambios hormonales. Orbitread Operator se puede cuidar un dolor de garganta causado por goteo posnasal? Chelsea grgaras con agua tibia con diamante para ayudar a deshacerse del dolor de garganta. Revuelva 1 cucharadita (5 g) de diamante en 8 fl oz (240 ml) de agua tibia. Chelsea grgaras con la frecuencia que desee; cuanto ms a menudo, mejor. Leola ms lquidos para calmar un dolor de garganta. La miel y el limn en el t dbil pueden ayudar. (No le d miel a nios menores de 1 ao.) [place] acetaminofeno, ibuprofeno o aspirina para ayudar a que el dolor desaparezca. Prescriptions: Ibuprofen [Motrin] 600 mg PO Q6 #30 tab Loratadine [Claritin] 10 mg PO DAILY #30 tab Forms: [employer] (Hungarian) - Clinical Impression Clinical Impression: Post-nasal drip, Sore throat - Scribe Statement The provider has reviewed the documentation as recorded by the Easton Celeste All medical record entries made by the Scribe were at my direction and personally dictated by me. I have reviewed the chart and agree that the record accurately reflects my personal performance of the history, physical exam, medical decision making, and the department course for this patient. I have also personally directed, reviewed, and agree with the discharge instructions and disposition.
== END 2018-06-13 19:37 | disposition home or self-care (01) ==
LOC: C.ER 18:26
DX: J02.9 Acute pharyngitis, unspecified (principal); R09.82 Postnasal drip; F17.210 Nicotine dependence, cigarettes, uncomplicated

== ENCOUNTER 2018-07-14 19:15 | Emergency (ER) | payer OTHER ==
[2018-07-14 19:15] VITALS: BMI 25.7
--- NOTE | 2018-07-14 20:01 | C.PDOC ---
History Of Present Illness The patient presents to the ED for evaluation of abdominal pain which began yesterday. She initially experienced some ovarian discomfort which progressed to mid-epigastric pain. Of note, patient is currently on her menstrual cycle. P atrabia denies fever, chills, nausea and vomiting at this time. Time Seen by Provider: 07/14/18 20:01 Chief Complaint (Nursing): Abdominal Pain History Per: Patient History/Exam Limitations: no limitations Onset/Duration Of Symptoms: Hrs Current Symptoms Are (Timing): Still Present Pain Scale Rating Of: 2 Location Of Pain/Discomfort: Epigastric (mid) Radiation Of Pain To:: None Quality Of Discomfort: "Pain" Associated Symptoms: denies: Fever, Chills, Nausea, Vomiting Exacerbating Factors: None Alleviating Factors: None Last Bowel Movement: Today Recent travel outside of the [place]: No Additional History Per: Patient Abnormal Vaginal Bleeding: No Last Menstral Period: current Past Medical History Reviewed: Historical Data, Nursing Documentation, Vital Signs Vital Signs: Last Vital Signs Temp 97.6 F 07/14/18 19:34 Pulse 99 H 07/14/18 19:34 Resp 20 07/14/18 19:34 BP 126/86 07/14/18 19:34 Pulse Ox 97 07/14/18 19:34 - Medical History PMH: Gastritis Denies: Diabetes Surgical History: No Surg Hx Family History: States: Unknown Family Hx - Social History Hx Tobacco Use: No Hx Alcohol Use: Yes Hx Substance Use: No - Immunization History Hx Tetanus Toxoid Vaccination: No Hx Influenza Vaccination: No Hx Pneumococcal Vaccination: No Review Of Systems Constitutional: Negative for: Fever, Chills Cardiovascular: Negative for: Chest Pain, Palpitations Respiratory: Negative for: Cough, Shortness of Breath Gastrointestinal: Positive for: Abdominal Pain (mid-epigastric). Negative for: Nausea, Vomiting, Diarrhea Genitourinary: Negative for: Dysuria, Frequency, Hematuria Musculoskeletal: Negative for: Back Pain Skin: Negative for: Rash, Lesions, Jaundice, Bruising Psych: Negative for: Suicidal ideation Physical Exam - Physical Exam Appears: Non-toxic, No Acute Distress Skin: Warm, Dry Head: Normacephalic Eye(s): bilateral: Normal Inspection Oral Mucosa: Moist Neck: Supple Chest: Symmetrical, No Deformity, No Tenderness Cardiovascular: Rhythm Regular, No Murmur Respiratory: No Rales, No Rhonchi, No Wheezing Gastrointestinal/Abdominal: Soft, Tenderness (mild, mid-epigastric ), No Guarding, No Rebound Extremity: Normal ROM, Capillary Refill (less than 2 seconds ) Neurological/Psych: Oriented x3 ED Course And Treatment - Laboratory Results Result Diagrams: 07/14/18 20:33 07/14/18 20:33 O2 Sat by Pulse Oximetry: 97 (on RA) Pulse Ox Interpretation: Normal Progress Note: Bloodwork, urinalysis, CT A/P ordered. IV Fluids given. Disposition Counseled Patient/Family Regarding: Studies Performed, Diagnosis, Need For Followup, Rx Given - Disposition Referrals: [facility] [Outside] [facility] [Outside] Disposition: HOME/ ROUTINE Disposition Time: 20:01 Condition: FAIR Additional Instructions: Please return if symptoms recur Prescriptions: metroNIDAZOLE IV 500 mg/100 ml [Flagyl IV] 500 mg IV TID #21 bag Instructions: Acute Abdomen (Belly Pain), Adult (DC) Forms: [employer] (Faroese) Print Language: [place] - Clinical Impression Clinical Impression: Enteritis, Abdominal pain - Scribe Statement The provider has reviewed the documentation as recorded by the Scribe (Maya Reynolds) Provider Attestation: All medical record entries made by the Scribe were at my direction and personally dictated by me. I have reviewed the chart and agree that the record accurately reflects my personal performance of the history, physical exam, medical decision making, and the department course for this patient. I have also personally directed, reviewed, and agree with the discharge instructions and disposition.
[2018-07-14 20:22] LABS: SQUAMOUS EPITHIAL 4 /hpf (0-5); URINE BACTERIA OCC (<OCC); URINE BILIRUBIN NEGATIVE (NEGATIVE); URINE BLOOD 1+ (NEGATIVE); URINE CLARITY Clear (Clear); URINE COLOR Yellow (YELLOW); URINE GLUCOSE (UA) NORMAL (Normal); URINE LEUKOCYTE ESTERASE NEG Leu/uL (Negative); URINE PROTEIN NEGATIVE (NEGATIVE); URINE UROBILINOGEN NORMAL mg/dL (0.2-1.0)
[2018-07-14 20:25] LABS: HCG,QUALITATIVE URINE NEGATIVE (NEGATIVE)
[2018-07-14] MEDS ORDERED: Sodium Chloride 0.9% 1,000 ML IV ONE (20:27)
[2018-07-14] MEDS ORDERED: Sodium Chloride 0.9% 1,000 ML ONE (20:35)
[2018-07-14 20:36] LABS: BASO % 0.3 % (0.0-2.0); EOS # 0.1 K/uL (0.0-0.7); EOS % 1.6 % (0.0-4.0); HEMOGLOBIN 12.4 g/dL (11.0-16.0); LYMPH # 1.4 K/uL (1.0-4.3); LYMPH % 24.1 % (20.0-40.0); MEAN CORPUSCULAR HEMOGLOBIN 28.4 pg (27.0-31.0); MEAN CORPUSCULAR HGB CONC 33.9 g/dL (33.0-37.0); MEAN PLATELET VOLUME 7.8 fL (7.2-11.7); MONO # 0.5 K/uL (0.0-0.8); MONO % 7.6 % (0.0-10.0); NEUT % 66.4 % (50.0-75.0); RBC 4.35 Mil/uL (3.80-5.20); RED CELL DISTRIBUTION WIDTH 13.2 % (11.5-14.5)
[2018-07-14 20:52] LABS: ALB/GLOB RATIO 1.7 (1.0-2.1); ALBUMIN 4.5 g/dL (3.5-5.0); ALT/SGPT 17 U/L (9-52); AST/SGOT 19 U/L (14-36); BLOOD UREA NITROGEN 14 mg/dL (7-17); CALCIUM 8.8 mg/dl (8.6-10.4); GFR NON-AFRICAN AMERICAN > 60; LIPASE 93 U/L (23-300)
[2018-07-14] MEDS ORDERED: Iohexol 300 100 ML IJ ONE (21:11)
[2018-07-14 23:05] VITALS: BP 122/73; PULSE 78; RESP 18; TEMP 98.1; O2SAT 99
--- NOTE | 2018-07-15 08:47 | CT ---
Date of service: 07/14/2018 PROCEDURE: CT Abdomen and Pelvis with contrast HISTORY: abd pain COMPARISON: Abdomen pelvis CT with contrast 06/12/2015. TECHNIQUE: Following the intravenous administration of iodinated contrast material, a CT examination of the abdomen and pelvis performed from the domes of the diaphragms to the symphysis pubis with reformatted datasets provided in axial, sagittal and coronal planes. Oral contrast was not administered as per referring physician request. Coronal and sagittal reformats were generated. Contrast dose: Omnipaque 300, 100 cc Radiation dose: Total exam DLP = 694.62 mGy-cm. This CT exam was performed using one or more of the following dose reduction techniques: Automated exposure control, adjustment of the mA and/or kV according to patient size, and/or use of iterative reconstruction technique. FINDINGS: LOWER THORAX: Stable 3 mm noncalcified nodule left lower lobe in image 15 series 3. Limited linear atelectasis or fibrosis right middle lobe base anteriorly. Bilateral basilar subsegmental atelectasis identified. LIVER: No mass identified in the liver with liver size upper limits normal. No definite intrahepatic biliary dilatation appreciable. GALLBLADDER AND BILE DUCTS: Unremarkable. PANCREAS: Unremarkable. No gross lesion or ductal dilatation. SPLEEN: Unremarkable. ADRENALS: Unremarkable. No mass. KIDNEYS AND URETERS: Unremarkable. No hydronephrosis. No solid mass. VASCULATURE: Unremarkable. No aortic aneurysm. No aortic atherosclerotic calcification or mural plaque present. BOWEL: The stomach is mildly distended with retained food. Small large-bowel loops do not appear obstructed. A [id number] amount of retained fecal material scattered throughout the colon predominantly at the proximal and mid segments. Small bowel is largely collapsed or minimally distended with fluid with overall appearance is nonspecific. No perienteric or pericolic reactive changes. APPENDIX: Normal appendix. PERITONEUM: Tiny umbilical hernia containing only mesenteric fat. No free fluid. No free air. LYMPH NODES: Unremarkable. No enlarged lymph nodes. BLADDER: Unremarkable. REPRODUCTIVE: 2.5 x 1.7 cm left adnexal cyst with none on the right. BONES: No acute fracture. OTHER FINDINGS: Fibrotic changes or tiny chronic cyst at the lateral left buttocks subcutaneous fat are unchanged compared to prior CT 06/12/2015. IMPRESSION: 1. Upper limits normal size liver without focal mass or intrahepatic biliary dilatation appreciable. 2. No bowel obstruction, mesenteric edema, ascites or free intra peritoneal gas collection. Tiny umbilical hernia containing only mesenteric fat. 3. 2.5 x 1.7 cm cm left adnexal cyst follow-up pelvic ultrasonography can be performed for added characterization. 4. Incidental stable benign nodule left lower lobe dating back to [address] noted above. Discordant preliminary report from [facility] 07/14/1909 19 p.m., no definitive pattern of enterocolitis granted lack of oral contrast administration. Left buttocks findings are chronic and likely represent fibrosis or even potential chronic tiny cyst unchanged from 2015.
== END 2018-07-14 23:40 | disposition home or self-care (01) ==
LOC: C.ER 19:15
DX: K52.9 Noninfective gastroenteritis and colitis, unspecified (principal)
CPT/HCPCS: 74177; 80053; 81001; 81025; 83690; 84703; 85025; 96374; 99285; J1885; J7030; Q9967

== ENCOUNTER 2018-11-05 15:33 | Emergency (ER) | payer SELFPAY ==
[2018-11-05 15:33] VITALS: BMI 25.7
[2018-11-05 15:40] VITALS: BP 130/83; PULSE 90; RESP 18; TEMP 97.5; O2SAT 100
--- NOTE | 2018-11-05 15:58 | C.PDOC ---
History Of Present Illness 43 year old female presents to ED with complaint of left ear pain since last night after sneezing. Patient denies fever, trauma, discharge, and hearing changes. L EAR PAIN SINCE LAST NIGHT ONSET AFTER SNEEZING. NO FEVER, TRAUMA, DC, HEARING CHANGE EXAM NAD HEENT L TM INTACT NO ERYTHEMA, NO CANAL SWELL; NO FB REMAINDER NEG Time Seen by Provider: 11/05/18 15:45 Chief Complaint (Nursing): ENT Problem History Per: Patient History/Exam Limitations: None Onset/Duration Of Symptoms: Days (1) Current Symptoms Are (Timing): Still Present Quality (Ear): Other (pain) Past Medical History Reviewed: Historical Data, Nursing Documentation, Vital Signs Vital Signs: Last Vital Signs Temp 97.5 F L 11/05/18 15:37 Pulse 90 11/05/18 15:37 Resp 18 11/05/18 15:37 BP 130/83 11/05/18 15:37 Pulse Ox 100 11/05/18 15:37 Primary Care Provider: FAMILY PROVIDER,NO - Medical History PMH: Gastritis Denies: Diabetes Surgical History: No Surg Hx Family History: States: Unknown Family Hx - Social History Hx Tobacco Use: No Hx Alcohol Use: Yes Hx Substance Use: No - Immunization History Hx Tetanus Toxoid Vaccination: No Hx Influenza Vaccination: No Hx Pneumococcal Vaccination: No Review Of Systems Except As Marked, All Systems Reviewed And Found Negative. ENT: Positive for: Ear Pain (left ear pain ) Physical Exam - Physical Exam Appears: Well, Non-toxic, No Acute Distress Skin: Normal Color, Warm, Dry Head: Atraumatic, Normacephalic Eye(s): bilateral: Normal Inspection, PERRL, EOMI Ear(s): Left: Other (TM intact, no erythema, no canal swelling, no foreign body present), Right: Normal Nose: Normal, No Discharge Oral Mucosa: Moist Throat: Normal, No Erythema, No Exudate Neck: Normal ROM, Supple Chest: Symmetrical, No Deformity Cardiovascular: Rhythm Regular, No Murmur Respiratory: No Accessory Muscle Use, No Rales, No Rhonchi, No Wheezing, Other (NARD) Gastrointestinal/Abdominal: Soft Extremity: Capillary Refill (<2 seconds) Pulses: Left Radial: Normal, Right Radial: Normal Neurological/Psych: Oriented x3, Normal Speech, Normal Cognition ED Course And Treatment O2 Sat by Pulse Oximetry: 100 (in RA) Pulse Ox Interpretation: Normal Progress Note: Patient given Motrin PO. Disposition Counseled Patient/Family Regarding: Diagnosis, Need For Followup, Rx Given - Disposition Referrals: [facility] [Outside] [facility] [Outside] Disposition: HOME/ ROUTINE Disposition Time: 15:52 Condition: IMPROVED Additional Instructions: BORDEN TAMBOR DE ODO ES INTACTO Y NO HAY EVIDENCIA PARA LA INFECCIN DEL ODO. TOME MOTRIN Y / O TYLENOL SEGN EL DOLOR. SEGUIR CON LA CLNICA [place] SE NECESITA. Prescriptions: Ibuprofen [Motrin] 600 mg PO Q6 #30 tab Forms: [employer] (Taiwanese) - Clinical Impression Clinical Impression: Otalgia - Scribe Statement The provider has reviewed the documentation as recorded by the Scribe (Erendira Allen) All medical record entries made by the Scribe were at my direction and personally dictated by me. I have reviewed the chart and agree that the record accurately reflects my personal performance of the history, physical exam, medical decision making, and the department course for this patient. I have also personally directed, reviewed, and agree with the discharge instructions and disposition.
== END 2018-11-05 16:09 | disposition home or self-care (01) ==
LOC: C.ER 15:33
DX: H92.02 Otalgia, left ear (principal)